=== PATIENT | male | born 1960 | race American Indian/Alaskan Native ===

== ENCOUNTER 2023-04-17 17:43 | Emergency (ER) | payer MEDICAID ==
[~2023-04-17] VITALS: Ht 175.3 cm; Wt 68.2 kg
[2023-04-17] MEDS ORDERED: EZALLOR SPRINKL40 MG PO (17:51)
[2023-04-17] MEDS ORDERED: ASPIRIN E.C. 8181 MG (17:52)
[2023-04-17] MEDS ORDERED: [UNRECOGNIZED DRUG - OTHER] PO (17:52)
[2023-04-17 18:26] LABS: BASO # 0.02 K/mm3 (0.02-0.10); EOS # 0.05 K/mm3 (0.04-0.40); EOS % 0.7 % (0.0-4.0); HEMATOCRIT 42.3 % (42.0-52.0); MEAN CELL VOLUME 101 fl (78-100); MEAN CORPUSCULAR HEMOGLOBIN 33 pg (27-31); MEAN CORPUSCULAR HGB CONC 33 g/dL (33-37); MEAN PLATELET VOLUME 9.1 fl (7.4-10.4); MONO # 0.93 K/mm3 (0.20-0.80); NEU # 4.62 K/mm3 (1.40-6.50); PLATELET COUNT 235 K/mm3 (130-400); RED BLOOD COUNT 4.19 M/mm3 (4.20-5.60); RED CELL DISTRIBUTION WIDTH 12.7 % (11.5-14.5); WHITE BLOOD COUNT 6.7 K/mm3 (4.8-10.8)
[2023-04-17 18:34] LABS: ALBUMIN 3.9 g/dL (3.4-4.8)
[2023-04-17 18:35] LABS: CALCIUM 9.2 mg/dL (8.3-10.5)
[2023-04-17 18:37] LABS: TOTAL PROTEIN 6.7 g/dL (6.2-8.1)
[2023-04-17 18:38] LABS: TOTAL BILIRUBIN 0.2 mg/dL (0.2-1.2)
[2023-04-17 22:08] LABS: PH-URINE 5.5 (5.0 - 8.0); URINE APPEARANCE SLIGHTLY CLOUDY (CLEAR); URINE BILIRUBIN 2+ (NEGATIVE); URINE BLOOD 3+ (NEGATIVE); URINE COLOR AMBER (YELLOW); URINE GLUCOSE NEGATIVE (NEGATIVE); URINE KETONE 1+ (NEGATIVE); URINE LEUKOCYTE ESTERASE NEGATIVE (NEGATIVE); URINE NITRATE NEGATIVE (NEGATIVE); URINE PROTEIN(semi-quant) 2+ (NEGATIVE)
[2023-04-17 22:15] LABS: URINE WBC 0-1 /hpf (0-3)
[2023-04-17 22:16] LABS: URINE MUCUS PRESENT (NOT PRESENT)
[2023-04-17 22:58] VITALS: BP 122/69
== END 2023-04-17 22:58 | disposition home or self-care (01) ==
LOC: ED 17:43
PROVIDERS: Family Medicine
DX: R41.0 Disorientation, unspecified (principal); R27.0 Ataxia, unspecified; R89.2 Abnormal level of other drugs, medicaments and biological substances in specimens from other organs, systems and tissues; F17.210 Nicotine dependence, cigarettes, uncomplicated; Z86.73 Personal history of transient ischemic attack (TIA), and cerebral infarction without residual deficits

== ENCOUNTER 2023-08-06 18:16 | Emergency (ER) | payer MEDICAID ==
[~2023-08-06] VITALS: Ht 177.8 cm; Wt 69.0 kg
[~2023-08-06 18:16] MED LIST: ASPIRIN E.C. 8181 MG; EZALLOR SPRINKL40 MG PO; [UNRECOGNIZED DRUG - OTHER] PO
[2023-08-06] MEDS ORDERED: XARELTO10 MG PO (18:34)
[2023-08-06] MEDS ORDERED: ATORVASTATIN CA40 MG PO (18:35)
[2023-08-06 19:39] LABS: BASO # 0.02 K/mm3 (0.02-0.10); EOS # 0.13 K/mm3 (0.04-0.40); EOS % 1.1 % (0.0-4.0); HEMATOCRIT 41.5 % (42.0-52.0); HEMOGLOBIN 13.8 g/dL (13.5-18.0); LYMPH# 1.77 K/mm3 (1.50-4.00); MEAN CELL VOLUME 97 fl (78-100); MEAN CORPUSCULAR HEMOGLOBIN 32 pg (27-31); MEAN CORPUSCULAR HGB CONC 33 g/dL (33-37); MEAN PLATELET VOLUME 8.9 fl (7.4-10.4); MONO # 0.91 K/mm3 (0.20-0.80); NEU # 8.76 K/mm3 (1.40-6.50); PLATELET COUNT 257 K/mm3 (130-400); RED BLOOD COUNT 4.26 M/mm3 (4.20-5.60); RED CELL DISTRIBUTION WIDTH 12.7 % (11.5-14.5); WHITE BLOOD COUNT 11.6 K/mm3 (4.8-10.8)
[2023-08-06 19:46] LABS: ALBUMIN 3.8 g/dL (3.4-4.8)
[2023-08-06 19:49] LABS: TOTAL PROTEIN 6.6 g/dL (6.2-8.1)
[2023-08-06 19:51] LABS: TOTAL BILIRUBIN 0.3 mg/dL (0.2-1.2)
[2023-08-06 22:03] LABS: URINE APPEARANCE SLIGHTLY CLOUDY (CLEAR); URINE BILIRUBIN 1+ (NEGATIVE); URINE BLOOD 2+ (NEGATIVE); URINE COLOR AMBER (YELLOW); URINE GLUCOSE NEGATIVE (NEGATIVE); URINE KETONE NEGATIVE (NEGATIVE); URINE LEUKOCYTE ESTERASE NEGATIVE (NEGATIVE); URINE NITRATE NEGATIVE (NEGATIVE); URINE PROTEIN(semi-quant) TRACE (NEGATIVE)
[2023-08-06 22:04] LABS: URINE MUCUS PRESENT (NOT PRESENT)
[2023-08-06 22:45] VITALS: BP 127/78
== END 2023-08-06 22:45 | disposition home or self-care (01) ==
LOC: ED 18:16
PROVIDERS: Family Medicine
DX: S50.311A Abrasion of right elbow, initial encounter (principal); R27.0 Ataxia, unspecified; F17.200 Nicotine dependence, unspecified, uncomplicated; Z79.01 Long term (current) use of anticoagulants; W08.XXXA Fall from other furniture, initial encounter; Y93.89 Activity, other specified; Y92.009 Unspecified place in unspecified non-institutional (private) residence as the place of occurrence of the external cause